=== PATIENT | male | born 1955 | race Caucasian/White ===

== ENCOUNTER 2019-03-29 09:18 | Observation (INO) ==
[2019-03-29] MEDS ORDERED: Naloxone 0.4 MG/ML INJ IVP PRN (11:46)
[2019-03-29 12:34] LABS: Troponin I 0.05 ng/mL (< 0.04)
[2019-03-29] MEDS ORDERED: *HR* Heparin 5,000 UNIT/ML VIAL IVP ONE ×2 (13:08→15:57)
[2019-03-29] MEDS ORDERED: *HR* Heparin 5,000 UNIT/ML VIAL IVP PRN ×4 (13:08→15:57)
[2019-03-29] MEDS ORDERED: Heparin 25,000 UNIT/250 ML D5W 25,000 UNIT/250 ML IV.SOLN IVC SCH ×2 (13:30→16:00)
[2019-03-29 13:33] LABS: Hematocrit 46.2 % (37.5-50.1); Hemoglobin 15.5 g/dL (12.9-16.9); Mean Corpuscular HGB Conc 33.5 g/dL (31.6-35.5); Mean Corpuscular Hemoglobin 30.9 pg (28.0-33.3); Platelet Count 155 K/mcL (140-400); Red Blood Count 5.02 M/mcL (4.19-5.50); Red Cell Distribution Width 16.9 % (11.5-14.5); White Blood Count 14.6 K/mcL (4.3-11.1)
[2019-03-29 13:44] LABS: Heparin anti-factor XA UFH 0.08 IU/mL (0.30-0.70)
[2019-03-29 13:45] LABS: INR 1.3
[2019-03-29] MEDS ORDERED: Isovue-370 500 ML BOTTLE IVP ONE (14:15)
[2019-03-29 14:59] LABS: Albumin 2.8 g/dL (3.5-5.7); Albumin/Globulin Ratio 1.2 (1.1-2.2); Bilirubin,Direct 0.6 mg/dL (0.0-0.2); Bilirubin,Indirect 0.6 mg/dL (0.0-1.2); Bilirubin,Total 1.2 mg/dL (0.3-1.0); Globulin 2.4 g/dL (2.4-3.5); Total Protein 5.2 g/dL (6.4-8.9)
[2019-03-29] MEDS: Acetaminophen 325 MG TABLET PO PRN (15:26)
[2019-03-29] MEDS: Aspirin 81 MG TAB.CHEW PO SCH (16:39)
[2019-03-29] MEDS: methylPREDNISolone 125 MG/2 ML VIAL IVP SCH (19:25)
[2019-03-29] MEDS: Ondansetron 4 MG/2 ML VIAL IVP PRN (19:26)
[2019-03-29] MEDS: Ipratropium/Albuterol Neb 3 ML IH SCH (21:46)
[2019-03-29] MEDS: Budesonide/Formoterol 160/4.5 1 PUFF INH IH SCH (21:47)
[2019-03-30 00:57] LABS: Basophils % 0.2 %; Hematocrit 45.8 % (37.5-50.1); Hemoglobin 15.1 g/dL (12.9-16.9); Immature Granulocytes % 1.1 % (0-4); Lymphocytes # 0.5 K/mcL (0.6-4.6); Lymphocytes % 3.3 %; Mean Corpuscular Hemoglobin 31.3 pg (28.0-33.3); Mean Corpuscular Volume 94.8 fL (83.0-100.0); Mean Platelet Volume 9.9 fL (9.4-12.4); Monocytes # 0.4 K/mcL (0.0-1.3); Monocytes % 2.6 %; Platelet Count 147 K/mcL (140-400); Red Blood Count 4.83 M/mcL (4.19-5.50); Red Cell Distribution Width 17.1 % (11.5-14.5); Segmented Neutrophils % 92.8 %
[2019-03-30 01:09] LABS: BUN/Creatinine Ratio 34 (6-26); Blood Urea Nitrogen 30 mg/dL (8-23); Calcium 8.1 mg/dL (8.6-10.3); Carbon Dioxide 30 mEq/L (23-29); Chloride 104 mEq/L (98-107); Cholesterol 156 mg/dL (< 200); Glucose 144 mg/dL (70-105); HDL Cholesterol 26 mg/dL (40-59); LDL Cholesterol,Calculated 101 mg/dL (0-99); Magnesium 2.3 mg/dL (1.6-2.6); Osmolality,Calculated 305 (280-300); Potassium 3.2 mEq/L (3.5-5.1); Sodium 143 mEq/L (136-145); Triglycerides 145 mg/dL (< 150); eGFR For African Americans > 60 (> 60); eGFR For Non-African Americans > 60 (> 60)
[2019-03-30] MEDS: methylPREDNISolone 125 MG/2 ML VIAL IVP SCH (01:49)
[2019-03-30] MEDS: Acetaminophen 325 MG TABLET PO PRN (01:49)
[2019-03-30] MEDS: Ipratropium/Albuterol Neb 3 ML IH SCH ×3 (03:29→15:32)
[2019-03-30] MEDS ORDERED: *HR* Midazolam HCl 2 MG/2 ML VIAL ONE (08:10)
[2019-03-30] MEDS ORDERED: *HR* Propofol 200 MG/20 ML VIAL IVP ONE (08:10)
[2019-03-30] MEDS ORDERED: *HR* FentaNYL (PF) 100 MCG/2 ML VIAL ONE (08:10)
[2019-03-30] MEDS ORDERED: Perflutren Lipid Microsphere 1.3 ML in 0.9 % Sodium Chloride 8.7 ML IVP ONE (08:11)
[2019-03-30] MEDS ORDERED: Dexamethasone 4 MG/ML VIAL ONE (08:13)
[2019-03-30] MEDS ORDERED: Lidocaine -MPF 4% 5 ML AMPUL ONE (08:13)
[2019-03-30] MEDS ORDERED: Ondansetron 4 MG/2 ML VIAL ONE (08:13)
[2019-03-30] MEDS ORDERED: *HR* Succinylcholine 200 MG/10 ML VIAL IVP ONE (08:13)
[2019-03-30] MEDS ORDERED: Lidocaine -MPF 2% 2 ML VIAL ONE (08:13)
[2019-03-30] MEDS ORDERED: Perflutren Lipid Microsphere 2 ML VIAL ONE (08:18)
[2019-03-30] MEDS ORDERED: Potassium Chloride 40 MEQ, Lidocaine 1% 2 ML in D5% in Water 500 ML IVPB ONE (08:30)
[2019-03-30] MEDS ORDERED: *HR* Metoprolol 5 MG/5 ML VIAL IVP ONE ×3 (08:45→17:50)
[2019-03-30] MEDS ORDERED: Potassium Chloride 40 MEQ, Lidocaine 1% 2 ML in 0.9 % Sodium Chloride 500 ML IVPB ONE (08:45)
[2019-03-30] MEDS ORDERED: Ringers Solution, Lactated 1,000 ML IVC SCH (09:30)
[2019-03-30] MEDS: Budesonide/Formoterol 160/4.5 1 PUFF INH IH SCH ×2 (10:52→21:20)
[2019-03-30] MEDS: Aspirin 81 MG TAB.CHEW PO SCH (12:27)
[2019-03-30] MEDS: MethylPREDNISolone 40 MG/ML VIAL IVP SCH (12:27)
[2019-03-30] MEDS ORDERED: Gadolinium Contrast Agent (WT Based) IV PRN (13:46)
[2019-03-30] MEDS ORDERED: Furosemide 20 MG/2 ML VIAL IVP ONE (14:38)
[2019-03-30 16:55] LABS: Appearance of Body Fluid Cloudy (Clear); Volume of Body Fluid 20 mL
[2019-03-30 17:03] LABS: Appearance of Body Fluid Cloudy (Clear); Volume of Body Fluid 10 mL
[2019-03-30] MEDS: *HR* Heparin 5,000 UNIT/ML VIAL SQ SCH (18:31)
[2019-03-30] MEDS: Levalbuterol Neb 0.63 MG/3 ML IH SCH (21:20)
[2019-03-31] MEDS: Levalbuterol Neb 0.63 MG/3 ML IH SCH ×3 (03:29→15:09)
[2019-03-31] MEDS: *HR* Heparin 5,000 UNIT/ML VIAL SQ SCH (04:44)
[2019-03-31] MEDS: MethylPREDNISolone 40 MG/ML VIAL IVP SCH ×2 (04:44→12:26)
[2019-03-31 08:03] LABS: Basophils % 0.2 %; Hematocrit 41.4 % (37.5-50.1); Immature Granulocytes % 1.1 % (0-4); Immature Reticulocyte % 19.6 % (11.0-38.0); Lymphocytes # 0.7 K/mcL (0.6-4.6); Lymphocytes % 4.3 %; Mean Corpuscular HGB Conc 31.9 g/dL (31.6-35.5); Mean Corpuscular Hemoglobin 30.5 pg (28.0-33.3); Mean Corpuscular Volume 95.6 fL (83.0-100.0); Mean Platelet Volume 10.7 fL (9.4-12.4); Monocytes # 0.4 K/mcL (0.0-1.3); Monocytes % 2.6 %; Neutrophils # 13.9 K/mcL (1.6-8.9); Platelet Count 169 K/mcL (140-400); Red Blood Count 4.33 M/mcL (4.19-5.50); Red Cell Distribution Width 17.3 % (11.5-14.5); Retculocyte # 0.06 M/mcL (0.05-0.10); Reticulocyte % 1.5 % (1.6-2.8); Segmented Neutrophils % 91.8 %; White Blood Count 15.2 K/mcL (4.3-11.1)
[2019-03-31 08:04] LABS: Hemoglobin 13.2 g/dL (12.9-16.9)
[2019-03-31] MEDS ORDERED: Gadolinium Contrast Agent (WT Based) IV PRN (08:07)
[2019-03-31] MEDS ORDERED: levETIRAcetam 1,000 MG in 0.9 % Sodium Chloride 100 ML IVPB ONE ×2 (08:07→19:48)
[2019-03-31 08:15] LABS: INR 1.6; Prothrombin Time 18.3 Seconds (9.4-12.1)
[2019-03-31 08:19] LABS: Albumin 2.3 g/dL (3.5-5.7); Albumin/Globulin Ratio 1.2 (1.1-2.2); Bilirubin,Total 1.4 mg/dL (0.3-1.0); Potassium 3.9 mEq/L (3.5-5.1); Total Protein 4.3 g/dL (6.4-8.9)
[2019-03-31] MEDS ORDERED: Spironolactone 25 MG TABLET PO SCH (09:00)
[2019-03-31 09:13] LABS: Folate 9.6 ng/mL (3.0-16.0); Vitamin B12 > 1500 pg/mL (250-1100)
[2019-03-31] MEDS ORDERED: 0.9 % Sodium Chloride 1,000 ML IV ONE (09:27)
[2019-03-31] MEDS: Aspirin 81 MG TAB.CHEW PO SCH (09:53)
[2019-03-31] MEDS: Budesonide/Formoterol 160/4.5 1 PUFF INH IH SCH (10:41)
[2019-03-31] MEDS ORDERED: 0.9 % Sodium Chloride 1,000 ML IVC SCH (11:00)
[2019-03-31 11:26] LABS: Hematocrit 39.6 % (37.5-50.1); Hemoglobin 13.1 g/dL (12.9-16.9)
[2019-03-31] MEDS ORDERED: 0.9 % Sodium Chloride 500 ML IVC ONE (12:51)
[2019-03-31] MEDS: Ondansetron 4 MG/2 ML VIAL IVP PRN (13:15)
[2019-03-31] MEDS: Pantoprazole 40 MG VIAL IVP SCH ×2 (14:55→17:07)
[2019-03-31 16:26] LABS: Hematocrit 35.6 % (37.5-50.1); Hemoglobin 11.4 g/dL (12.9-16.9)
[2019-03-31] MEDS ORDERED: Mannitol 25% vial 12.5 GM/50 ML VIAL IVP ONE (19:57)
[2019-03-31] MEDS ORDERED: 0.9 % Sodium Chloride 250 ML ONE (20:15)
[2019-03-31 20:25] VITALS: BP 90/72
== END 2019-03-31 20:30 | disposition critical access hospital (66) ==
LOC: 3ANU → SUATTDRO 10:32 → ICNU 03-31 11:15
PROVIDERS: ADMIT Pharmacist; ATTEND Internal Medicine